=== PATIENT | female | born 1995 | race Caucasian/White ===

== ENCOUNTER 2024-12-21 04:02 | Emergency (ER) | payer OTHER ==
[~2024-12-21] VITALS: Ht 175.3 cm; Wt 63.2 kg
[2024-12-21 04:11] VITALS: O2SAT 99
[2024-12-21 04:22] VITALS: BP 112/69; PULSE 70; RESP 18; TEMP 36.8; O2SAT 100
[2024-12-21 05:15] LABS: CLARITY URINE TURBID (CLEAR); COLOR URINE YELLOW (YELLOW); GLUCOSE URINE NEGATIVE (NEGATIVE); KETONES URINE NEGATIVE (NEGATIVE); LEUKOCYTE ESTERASE URINE 3+ (NEGATIVE); NITRITE URINE NEGATIVE (NEGATIVE); OCCULT BLOOD URINE 3+ (NEGATIVE); PH URINE 5.5 (4.5-8.0); PROTEIN URINE 2+ (NEGATIVE); SPECIFIC GRAVITY URINE 1.018 (1.005-1.030)
[2024-12-21 05:28] LABS: BACTERIA URINE TRACE; RBC URINE TNTC /hpf (0-2); SQUAMOUS EPITHELIAL CELL URINE FEW /lpf (RARE/1+); WBC URINE 25-50 /hpf (0-2)
[2024-12-21] MEDS ORDERED: NITR100C MT (05:45)
[2024-12-21] MEDS ORDERED: PHEN-910 MT (05:45)
[2024-12-24 05:09] LABS: CHLAMYDIA TRACHOMATIS NAA Negative (Negative); NEISSERIA GONORRHOEAE NAA Negative (Negative)
== END 2024-12-21 05:58 | disposition home or self-care (01) ==
LOC: ER 04:02
DX: N30.91 Cystitis, unspecified with hematuria (principal); Z90.89 Acquired absence of other organs
CPT/HCPCS: 81003; 81025; 87077; 87186; 87491; 87591; 99283